=== PATIENT | female | born 1960 | race Caucasian/White ===

== ENCOUNTER 2022-04-30 10:18 | Inpatient (IN) ==
--- NOTE | 2022-04-14 15:35 | PAT Medication Instructions ---
Medication Instructions Date of Service April 14, 2022 Home Medications acetaminophen 500 mg tablet 500 mg PO BID carboxymethylcellulose sodium 1 % eye drops (Artificial Tears (carboxymethylcellulose)) 1 drp ophthalmic (eye) QID cyanocobalamin (vitamin B-12) 1,000 mcg tablet 1,000 mcg PO QAM divalproex 250 mg tablet,delayed release 250 mg PO BID divalproex 500 mg tablet,delayed release 500 mg PO BID docusate sodium 100 mg capsule 100 mg PO BID fiber 1 tab PO BID fluticasone propionate 50 mcg/actuation nasal spray,suspension 1 spray intranasal QAM gabapentin 100 mg capsule 100 mg PO BID hydroxychloroquine 200 mg tablet 200 mg PO BID lamotrigine 100 mg tablet (Lamictal) 100 mg PO QAM lamotrigine 25 mg tablet (Lamictal) 25 mg PO HS levetiracetam 1,000 mg tablet (Keppra) 1,000 mg PO TID levothyroxine 100 mcg tablet 100 mcg PO QAM lorazepam 0.5 mg tablet 0.5 mg PO BID meloxicam 7.5 mg tablet 7.5 mg PO QAM menthol 4 % topical gel (X-Treme Freeze) 1 applic topical BID PRN Pain metformin 850 mg tablet 850 mg PO BID multivitamin 1 tab PO QAM pantoprazole 40 mg tablet,delayed release 40 mg PO QAM polysaccharide iron complex 150 mg iron capsule (iFerex 150) 150 mg PO QAM primidone 50 mg tablet 100 mg PO HS psyllium seed (sugar) oral powder (Metamucil (sugar) oral powder) 1 tbsp PO QAM quetiapine 100 mg tablet (Seroquel) 100 mg PO HS rosuvastatin 5 mg tablet 5 mg PO HS sertraline 200 mg capsule 200 mg PO QAM ASK your surgeon for instructions meloxicam 7.5 mg tablet 7.5 mg PO QAM ASK your prescriber and surgeon hydroxychloroquine 200 mg tablet 200 mg PO BID STOP taking 24 hours before surgery menthol 4 % topical gel (X-Treme Freeze) 1 applic topical BID PRN Pain DO NOT take the morning of surgery cyanocobalamin (vitamin B-12) 1,000 mcg tablet 1,000 mcg PO QAM docusate sodium 100 mg capsule 100 mg PO BID fiber 1 tab PO BID metformin 850 mg tablet 850 mg PO BID multivitamin 1 tab PO QAM polysaccharide iron complex 150 mg iron capsule (iFerex 150) 150 mg PO QAM psyllium seed (sugar) oral powder (Metamucil (sugar) oral powder) 1 tbsp PO QAM Take morning of surgery With a small sip of water, OTHERWISE NOTHING TO EAT OR DRINK AFTER MIDNIGHT: acetaminophen 500 mg tablet 500 mg PO BID carboxymethylcellulose sodium 1 % eye drops (Artificial Tears (carboxymethylcellulose)) 1 drp ophthalmic (eye) QID divalproex 250 mg tablet,delayed release 250 mg PO BID divalproex 500 mg tablet,delayed release 500 mg PO BID fluticasone propionate 50 mcg/actuation nasal spray,suspension 1 spray intranasal QAM gabapentin 100 mg capsule 100 mg PO BID lamotrigine 100 mg tablet (Lamictal) 100 mg PO QAM levetiracetam 1,000 mg tablet (Keppra) 1,000 mg PO TID levothyroxine 100 mcg tablet 100 mcg PO QAM lorazepam 0.5 mg tablet 0.5 mg PO BID pantoprazole 40 mg tablet,delayed release 40 mg PO QAM sertraline 200 mg capsule 200 mg PO QAM Take evening before surgery acetaminophen 500 mg tablet 500 mg PO BID carboxymethylcellulose sodium 1 % eye drops (Artificial Tears (carboxymethylcellulose)) 1 drp ophthalmic (eye) QID divalproex 250 mg tablet,delayed release 250 mg PO BID divalproex 500 mg tablet,delayed release 500 mg PO BID docusate sodium 100 mg capsule 100 mg PO BID fiber 1 tab PO BID gabapentin 100 mg capsule 100 mg PO BID lamotrigine 25 mg tablet (Lamictal) 25 mg PO HS levetiracetam 1,000 mg tablet (Keppra) 1,000 mg PO TID lorazepam 0.5 mg tablet 0.5 mg PO BID metformin 850 mg tablet 850 mg PO BID primidone 50 mg tablet 100 mg PO HS quetiapine 100 mg tablet (Seroquel) 100 mg PO HS rosuvastatin 5 mg tablet 5 mg PO HS Other Notes If you have any questions please call us at [phone] or [phone] or [phone] or [phone]
--- NOTE | 2022-04-17 13:53 | Anesthesiology Consultation ---
Date of Service April 17, 2022 Assessment & Plan (1) Encounter for pre-operative examination: Chart Review Chart Review: Acceptable Risk for Surgery (pending preop Covid test ) and Patient seen in Pre Admission Testing - Check BSG AM DOS - Pt is NOT an acceptable Same Day Joint candidate Per PAT appt on 04/17/22, patient denies any recent travel or large group activities. Pt resides at [facility] [place]. Pt is vaccinated for Covid. Will need preop Covid testing prior to surgery due to living in facility= will await results (surgeon's office was made aware to order). Educated on importance of using Covid precautions one week prior to surgery Teaching & Discussion Pre-Anesthesia Teaching/Discussion Notes: Instructed NPO after midnight before surgery,except medications with 15 cc of water. Medication instructions provided according to the PAT guidelines. History Surgery Operation Date: 04/30/22 13:15 Proposed Procedures p Right Anatomic Total Shoulder Replacement - Tereso Roque M.D. Height/Weight Height: 5 ft 1.5 in Weight: 117.5 kg Allergies Allergy/AdvReac Type Severity Reaction Status Date / Time Penicillins Allergy Unknown Rash Verified 04/17/22 14:03 Sulfa (Sulfonamide Allergy Unknown Rash Verified 04/17/22 14:03 Antibiotics) Thiazides Allergy Unknown Rash Verified 04/17/22 14:03 Medications Home Medications Medication Instructions Recorded Confirmed Last Taken acetaminophen 500 mg tablet 500 mg PO BID 04/08/22 04/08/22 Unknown carboxymethylcellulose sodium 1 % 1 drp ophthalmic (eye) QID 04/08/22 04/08/22 Unknown eye drops (Artificial Tears (carboxymethylcellulose)) cyanocobalamin (vitamin B-12) 1,000 mcg PO QAM 04/08/22 04/08/22 Unknown 1,000 mcg tablet divalproex 250 mg tablet,delayed 250 mg PO BID 04/08/22 04/08/22 Unknown release divalproex 500 mg tablet,delayed 500 mg PO BID 04/08/22 04/08/22 Unknown release docusate sodium 100 mg capsule 100 mg PO BID 04/08/22 04/08/22 Unknown fiber 1 tab PO BID 04/08/22 04/08/22 Unknown fluticasone propionate 50 1 spray intranasal QAM 04/08/22 04/08/22 Unknown mcg/actuation nasal spray,suspension gabapentin 100 mg capsule 100 mg PO BID 04/08/22 04/08/22 Unknown hydroxychloroquine 200 mg tablet 200 mg PO BID 04/08/22 04/08/22 Unknown lamotrigine 100 mg tablet 100 mg PO QAM 04/08/22 04/08/22 Unknown (Lamictal) lamotrigine 25 mg tablet (Lamictal) 25 mg PO HS 04/08/22 04/08/22 Unknown levetiracetam 1,000 mg tablet 1,000 mg PO TID 04/08/22 04/08/22 Unknown (Keppra) levothyroxine 100 mcg tablet 100 mcg PO QAM 04/08/22 04/08/22 Unknown lorazepam 0.5 mg tablet 0.5 mg PO BID 04/08/22 04/08/22 Unknown meloxicam 7.5 mg tablet 7.5 mg PO QAM 04/08/22 04/08/22 Unknown menthol 4 % topical gel (X-Treme 1 applic topical BID PRN Pain 04/08/22 04/08/22 Unknown Freeze) metformin 850 mg tablet 850 mg PO BID 04/08/22 04/08/22 Unknown multivitamin 1 tab PO QAM 04/08/22 04/08/22 Unknown pantoprazole 40 mg tablet,delayed 40 mg PO QAM 04/08/22 04/08/22 Unknown release polysaccharide iron complex 150 mg 150 mg PO QAM 04/08/22 04/08/22 Unknown iron capsule (iFerex 150) primidone 50 mg tablet 100 mg PO HS 04/08/22 04/08/22 Unknown psyllium seed (sugar) oral powder 1 tbsp PO QAM 04/08/22 04/08/22 Unknown (Metamucil (sugar) oral powder) quetiapine 100 mg tablet (Seroquel) 100 mg PO HS 04/08/22 04/08/22 Unknown rosuvastatin 5 mg tablet 5 mg PO HS 04/08/22 04/08/22 Unknown sertraline 200 mg capsule 200 mg PO QAM 04/08/22 04/08/22 Unknown Past Medical History Medical History (Updated 04/17/22 @ 14:40 by Marguerite Estevez PA-C) Alopecia Anemia On iron supplement Stable Bipolar disorder Constipation Chronic- stable DDD (degenerative disc disease) Dental abscess On antibiotic - surgeon's office made aware 04/17/22 (will leave to surgeon's discretion) Depression Diabetes mellitus, type 2 Well controlled and stable Dry eye syndrome Epilepsy Last known seizure 2019 > grand mal, normally has petit mal seizures > Dr. Fazal Molina > [place] GERD (gastroesophageal reflux disease) Well controlled and stable History of breast cancer S/p lumpectomy- s/p XRT History of COVID-19 approx 6-7 mos ago > was not hospitalized > resolved Hx of gastritis Hx of ovarian cancer > hysterectomy; no chemo or XRT Hyperlipidemia Hypothyroidism Obesity OCD (obsessive compulsive disorder) Exercise / Class Metabolic Activity III < 4 Walking/Shop/Light housework (uses walker for ambulation - no chest pain or SOB with flat surface/short distance ambulation) Past Surgical History Surgical History Fistula anal with repair H/O ankle fusion left History of esophagogastroduodenoscopy (EGD) History of hysterectomy partial History of total knee replacement bilat Hx of colonoscopy with polypectomy Hx of eye surgery Hx of lumpectomy left Past Anesthesia History No Hx of Anesthesia Complications and No Family Hx of Anesthesia Complications History of PONV No Hx of PONV and No Hx of Motion Sickness Social History Smoking Status: Never smoker Do You Dip or Chew Tobacco: No Hx Alcohol Use: No Hx Substance Use: No substance use type: does not use Review of Systems -Chronic sinusitis - no current issues - Possible blood transfusion for anemia - Occ snoring - no hx of sleep study Patient denies chest pain, shortness of breath, dyspnea on exertion, cough, wheezing, palpitations. No hx of stroke, [place]. No hx of blood clots or blood transfusions Physical Exam Vital Signs VITALS BP 139/98 P 72 TEMP 98.0 SP02 97% RESP 16 Constitutional no acute distress ENMT Mouth: no TMJ clicking Thyromental Distance: > or= 3.5 Finger Breadths (4.0) Mallampati Class: III Broken teeth; side teeth/molars missing Neck + limited neck extension (mild ) Respiratory normal respiratory effort; no respiratory distress Auscultation: lungs clear to auscultation bilaterally; no wheezes Cardiovascular Rate/Rhythm: regular rate and regular rhythm Heart Sounds: no murmur Vessels: no carotid bruit Heart sounds diminished throughout Musculoskeletal Spine: no pain with cervical ROM Extremities: extremities normal to inspection Psychiatric Orientation: alert Lab Results Anesthesia Preop Results Results Anesthesia Widget: WBC 5.50 K/ul (4.8-10.8) 04/17/22 Hgb 12.2 g/dl (12.0-16.0) 04/17/22 Hct 37.4 % (37.0-47.0) 04/17/22 Plt 181 K/uL (130-400) 04/17/22 Na 138 mmol/L (136-145) 04/17/22 K 4.7 mmol/L (3.5-5.1) 04/17/22 Cl 104 mmol/L (98-107) 04/17/22 CO2 29 mmol/L (21-32) 04/17/22 BUN 19 mg/dl (6-23) 04/17/22 Creat 0.74 mg/dl (0.6-1.2) 04/17/22 Glucose Level 110 mg/dl (70-99(Fasting)) H 04/17/22 PT 11.0 Seconds (9.0-12.0) 04/17/22 PTT 27.8 Seconds (21.0-31.0) 04/17/22 INR 1.0 (0.9-1.1) 04/17/22 HA1c 5.9 % (4.5-5.6) H 04/17/22 Urine Color Dark Yellow 04/17/22 Urine Appearance Clear (Clear) 04/17/22 Urine pH 6.0 (4.5-7.5) 04/17/22 Urine Specific [place] 1.024 (1.000-1.030) 04/17/22 Urine Protein Negative (Negative) 04/17/22 Urine Glucose (UA) Negative (Negative) 04/17/22 Urine Ketones Trace (Negative) H 04/17/22 Urine Blood Negative (Negative) 04/17/22 Urine Nitrite Negative (Negative) 04/17/22 Urine Bilirubin Negative (Negative) 04/17/22 Urine Urobilinogen Negative (Negative) 04/17/22 Urine Leukocyte Esterase Trace (Negative) H 04/17/22 Urine WBC (Auto) 1-5 /hpf (0-5) 04/17/22 Urine RBC (Auto) 5-10 /hpf (0-4) H 04/17/22 Urine Hyaline Casts (Auto) 0 /lpf (0-5) 04/17/22 Urine Epithelial Cells (Auto) 10-20 /lpf (0-5) H 04/17/22 Urine Bacteria (Auto) Negative (Negative) 04/17/22 Blood Type O Positive 04/17/22 Antibody Screen NEGATIVE 04/17/22 Testing Electrocardiogram Date: 04/17/22 Findings: + NSR @ (73bpm ) Nonspecific T wave abnormality Prolonged QT Chest X-Ray Date: 04/17/22 Findings: + NAD and + cardiomegaly (mild) COVID-19 Risk Screen Screening Information COVID-19 Screen Date: 04/17/22 Exposure 21 Days Family/Household +COVID Last 21 Days: No Exposure 10 Days Any COVID Exposure Last 10 Days: No Symptoms Last 10 Days Experienced COVID Sx Last 10 Days: No + COVID 0-90 Days COVID + in Last 0-90 Days: No Risk Plan COVID Risk Plan: No Risk Identified Patient Education COVID Preop Screening Education Complete: Yes
--- NOTE | 2022-04-29 16:26 | History & Physical Report ---
Date of Service April 29, 2022 Assessment & Plan (1) Primary osteoarthritis, right shoulder: Plan: Her x-rays and MRI are very consistent with right shoulder primary glenohumeral joint arthritis. We discussed further conservative management with repeat glenohumeral joint steroid injections versus definitive surgical intervention with a total shoulder arthroplasty. She feels like the injections were minimally effective for her in the past, and would like to proceed with a shoulder replacement. Since her imaging is most consistent with primary glenohumeral joint arthritis, I do think that she would be a candidate for an anatomic total shoulder arthroplasty. I am concerned about the large cysts in her humeral head that look like they are emanating from the greater tuberosity footprint of the supraspinatus tendon, likely consistent with some chronic rotator cuff tendinitis. I did advise her that a reverse total shoulder arthroplasty is more definitive, and with an anatomic total shoulder she is at risk for requiring a revision to a reverse if her rotator cuff ruptures postoperatively. However, given her seizure disorder and walker dependence, I think she would be at increased risk for dislocation of her reverse total shoulder arthroplasty. I therefore think that a an anatomic total shoulder would be the best option for her. She is in agreement with this plan and would like to proceed with a right anatomic total shoulder arthroplasty. Risks, benefits, and alternatives of surgery were explained in detail. The surgical procedure, as well as postoperative recovery and rehabilitation, was also explained in detail. Risks include bleeding; infection; damage to surrounding structures such as nerves, blood vessels, and tendons that run in the area; persistent pain or stiffness; hardware failure; dislocation; brachial plexus palsy; blood clots; or need for further surgery. The patient understands all of this and wishes to proceed with surgery. Risks will be reviewed on the day of surgery and informed consent obtained. History of Present Illness Chief Complaint: Right shoulder pain Primary Care Provider: Sonu Lundberg Ms. Morales returns. Again, she is a 61-year-old [id number] female who was referred from Dr. Shah's team for further evaluation of chronic right shoulder pain. She has had pain in the shoulder for several years, but it got quite severe in the last year and she has a lot of difficulty with any motion now. She is only had 1 injection in her shoulder joint around September which gave her only about 5 to 6 weeks improvement in her pain. She was also sent to physical therapy without significant long-term improvement. She does have some weakness and difficulty with lifting her arm to the side. This pain is waking her up at night. At her last appointment we had discussed total shoulder arthroplasty, but she is unsure whether she wanted to move forward with that. She has gotten her hemoglobin A1c value drawn since then. She also made some postoperative arrangements for rehabilitation placement after potential shoulder replacement surgery. [facility] is planning to [facility] [place]. Of note, she has a seizure disorder and is on multiple antiepileptic medications. Her last seizure was in 2018. She is also diabetic; hemoglobin A1c on 02/24/22 was 6.3. She uses a walker for ambulation. This is mostly just for balance, but she feels like she would be fine if she only used her left hand on the walker. She also had a left ankle fusion in 2018, but is full weightbearing. She lives in an assisted living facility. Allergies Allergy/AdvReac Type Severity Reaction Status Date / Time Penicillins Allergy Unknown Rash Verified 04/17/22 14:03 Sulfa (Sulfonamide Allergy Unknown Rash Verified 04/17/22 14:03 Antibiotics) Thiazides Allergy Unknown Rash Verified 04/17/22 14:03 Home Medications Medication Instructions Recorded Confirmed Type acetaminophen 500 mg tablet 500 mg PO BID 04/08/22 04/08/22 History carboxymethylcellulose sodium 1 % 1 drp ophthalmic (eye) QID 04/08/22 04/08/22 History eye drops (Artificial Tears (carboxymethylcellulose)) cyanocobalamin (vitamin B-12) 1,000 mcg PO QAM 04/08/22 04/08/22 History 1,000 mcg tablet divalproex 250 mg tablet,delayed 250 mg PO BID 04/08/22 04/08/22 History release divalproex 500 mg tablet,delayed 500 mg PO BID 04/08/22 04/08/22 History release docusate sodium 100 mg capsule 100 mg PO BID 04/08/22 04/08/22 History fiber 1 tab PO BID 04/08/22 04/08/22 History fluticasone propionate 50 1 spray intranasal QAM 04/08/22 04/08/22 History mcg/actuation nasal spray,suspension gabapentin 100 mg capsule 100 mg PO BID 04/08/22 04/08/22 History hydroxychloroquine 200 mg tablet 200 mg PO BID 04/08/22 04/08/22 History lamotrigine 100 mg tablet 100 mg PO QAM 04/08/22 04/08/22 History (Lamictal) lamotrigine 25 mg tablet (Lamictal) 25 mg PO HS 04/08/22 04/08/22 History levetiracetam 1,000 mg tablet 1,000 mg PO TID 04/08/22 04/08/22 History (Keppra) levothyroxine 100 mcg tablet 100 mcg PO QAM 04/08/22 04/08/22 History lorazepam 0.5 mg tablet 0.5 mg PO BID 04/08/22 04/08/22 History meloxicam 7.5 mg tablet 7.5 mg PO QAM 04/08/22 04/08/22 History menthol 4 % topical gel (X-Treme 1 applic topical BID PRN Pain 04/08/22 04/08/22 History Freeze) metformin 850 mg tablet 850 mg PO BID 04/08/22 04/08/22 History multivitamin 1 tab PO QAM 04/08/22 04/08/22 History pantoprazole 40 mg tablet,delayed 40 mg PO QAM 04/08/22 04/08/22 History release polysaccharide iron complex 150 mg 150 mg PO QAM 04/08/22 04/08/22 History iron capsule (iFerex 150) primidone 50 mg tablet 100 mg PO HS 04/08/22 04/08/22 History psyllium seed (sugar) oral powder 1 tbsp PO QAM 04/08/22 04/08/22 History (Metamucil (sugar) oral powder) quetiapine 100 mg tablet (Seroquel) 100 mg PO HS 04/08/22 04/08/22 History rosuvastatin 5 mg tablet 5 mg PO HS 04/08/22 04/08/22 History sertraline 200 mg capsule 200 mg PO QAM 04/08/22 04/08/22 History Past Med/Surg History Medical History (Updated 04/29/22 @ 16:24 by Tereso Roque M.D.) Alopecia Anemia On iron supplement Stable Bipolar disorder Constipation Chronic- stable DDD (degenerative disc disease) Dental abscess On antibiotic - surgeon's office made aware 04/17/22 (will leave to surgeon's discretion) Depression Diabetes mellitus, type 2 Well controlled and stable Dry eye syndrome Epilepsy Last known seizure 2019 > grand mal, normally has petit mal seizures > Dr. Fazal Molina > [place] GERD (gastroesophageal reflux disease) Well controlled and stable History of breast cancer S/p lumpectomy- s/p XRT History of COVID-19 approx 6-7 mos ago > was not hospitalized > resolved Hx of gastritis Hx of ovarian cancer > hysterectomy; no chemo or XRT Hyperlipidemia Hypothyroidism Obesity OCD (obsessive compulsive disorder) Surgical History Fistula anal with repair H/O ankle fusion left History of esophagogastroduodenoscopy (EGD) History of hysterectomy partial History of total knee replacement bilat Hx of colonoscopy with polypectomy Hx of eye surgery Hx of lumpectomy left Social History Smoking Status: Never smoker Second Hand Exposure: No; Hx Alcohol Use: No Hx Substance Use: No Preferred Language: Romanian Communication Ability: Effective Stoker Erector And Servicer Required: No Beliefs That Will Affect Care: None Current Living Situation: Personal Care Facility Feels Safe at Home: Yes Assistive Devices: Cane, Glasses and Walker Physical Exam Physical Exam: Examination of the right shoulder shows moderate limitation in shoulder range of motion due to pain, with palpable crepitus during motion. Rotator cuff strength is well maintained. Results & Data ([facility]) Diagnostic Findings Previous x-rays of the right shoulder from January 27 were reviewed. They show fairly severe glenohumeral joint arthritis with complete loss of the joint space. This does look like primary glenohumeral joint arthritis with no obvious proximal migration of the humeral head. MRI of the right shoulder from February 04 was reviewed. It confirms severe glenohumeral joint arthritis. There is some posterior subluxation of the humeral head. No full-thickness rotator cuff tears are seen, but there is some mild diffuse tendinopathy of the supraspinatus tendon. There are numerous very large cysts within the humeral head that seem to be emanating from the rotator cuff insertion point of the greater tuberosity, likely associated with chronic rotator cuff tendinitis. Type II acromion. There is also a very large loose body in the anterior aspect of the joint superior and anterior to the subscapularis tendon.
[~2022-04-30 10:18] MED LIST: ACETAMINOPHEN 500 MG TAB PO SCH; BUPIVACAINE 0.5 % 5 MG/1 ML PF 10ML VIAL ONE; CeleBREX 200 MG CAP PO SCH; FAMOTIDINE 20 MG TAB PO SCH; GABAPENTIN 600 MG DOSE PO SCH; LR 15ML/HR IV SCH; METOCLOPRAMIDE HCL 10 MG TABLET PO SCH; TRANEXAMIC ACID 1,000 MG **IV Pre-op IV SCH; ceFAZolin 2000MG 2,000 MG/15 ML SYR IV SCH; dexAMETHasone 4 MG TAB PO SCH
--- NOTE | 2022-04-30 11:10 | History & Physical Bridge Note ---
Date of Service April 30, 2022 History & Physical Bridge Note I have examined the patient, reviewed the History & Physical and in the interval since the performance of the History & Physical I have noted the following changes of clinical significance: no changes noted
[2022-04-30] MEDS ORDERED: Nursing to Pharmacy Communication SCH (11:15)
[2022-04-30] MEDS ORDERED: MIDAZOLAM HCL 1 MG/ML 2ML VIAL ONE ×2 (11:43→13:44)
[2022-04-30] MEDS ORDERED: fentaNYL citrate 100 MCG/2 ML VIAL ONE ×2 (11:43→13:44)
[2022-04-30] MEDS ORDERED: ePHEDrine sulfate 50 MG/ML AMP IV PRN (12:17)
[2022-04-30] MEDS ORDERED: ONDANSETRON INJ 2 MG/ML 2 ML VIAL IV PRN ×2 (12:17→17:52)
[2022-04-30] MEDS ORDERED: ATROPINE SULFATE 0.1 MG/ML 10ML SYR IV PRN (12:17)
[2022-04-30] MEDS ORDERED: PROMETHAZINE HCL 6.25 MG in SODIUM CHLORIDE 0.9% 50 ML IV PRN (12:17)
[2022-04-30] MEDS ORDERED: LIDOCAINE 2% MPF LOCAL 5 ML VIAL INFIL ONE (14:47)
[2022-04-30] MEDS ORDERED: ePHEDrine sulfate 50 MG/ML AMP ONE (14:47)
[2022-04-30] MEDS ORDERED: DEXAMETHASONE SOD INJ 4 MG/ML VIAL ONE ×2 (14:47→18:39)
[2022-04-30] MEDS ORDERED: ROCURONIUM BROMIDE 10 MG/ML 5 ML VIAL IV ONE (14:47)
[2022-04-30] MEDS ORDERED: PROPOFOL IV EMULSION 10 MG/ML 20 ML VIAL IV ONE (14:47)
--- NOTE | 2022-04-30 16:19 | Operative Report ---
Post Operative Report Pre & Post Diagnosis Operation Date: 04/30/22 12:35 Pre-Op Diagnosis: Right shoulder primary glenohumeral joint arthritis Post-Op Diagnosis: Right shoulder primary glenohumeral joint arthritis I identified the patient and participated in the time-out.: Yes Procedure Operation Date: 04/30/22 12:35 Actual Procedures Right anatomic total shoulder arthroplasty (07710) Open biceps tenodesis (46957) - Tereso Roque M.D. Surgeon Tereso Roque MD [employer] Manager Mitch Cates PA-C Estimated Blood Loss 100 Findings Consistent with Post-Op Diagnosis Specimens None Drains None Anesthesia Type General Regional Complications none Disposition Disposition: Recovery Room Indications Ms. Morales is a 61-year-old female with chronic right shoulder pain. Histo ry, clinical exam, and imaging were consistent with the above diagnosis. Risks, benefits, and alternatives of surgery were explained in detail. The patient understood all this and wished to proceed. Description of Procedure Components Implanted: Tornier Anatomic Total Shoulder implants Perform Pegged Cortiloc polyethylene glenoid: Small Ascend Flex humeral stem: 3B Standard length (74mm) Humeral head: 46 x 17mm, high offset Patient was identified in the preoperative holding area. Operative extremity was marked. Regional blockade was given by the Anesthesia Staff. Patient was then brought back to the operating room, and general anesthesia was induced without complication. Appropriate weight-based dose of Ancef was infused intravenously for antibiotic prophylaxis. The patient was then placed in the beachchair position. Right arm was then prepped and draped in a standard sterile fashion using Chlorhexidine prep. A standard deltopectoral incision was made through the skin and subcutaneous tissue. The cephalic vein was identified and retracted medially. Small branches to the deltoid were coagulated as necessary. The clavipectoral fascia was then incised and the subdeltoid space was opened. The rotator cuff was found to be intact, and I therefore decided to perform an anatomic total shoulder arthroplasty as planned preoperatively. The biceps tendon was identified within the bicipital groove and tenodesed at the superior border of the pectoralis tendon with #2 FiberWire suture. The biceps tendon was then divided proximal to the tenodesis site and the rotator interval was opened. The proximal portion of the biceps tendon was excised. Lesser tuberosity osteotomy was then performed to detach the subscapularis off of the proximal humerus; this was tagged with a #0 Vicryl suture. The glenohumeral joint was then dislocated, and large osteophytes were debrided with a ronguer. The humeral head cut was then made in the appropriate inclination and version. The intramedullary canal of the humerus was then opened with a canal finder and lateralizing reamer. Proximal humerus metaphyseal bone was noted to be extremely soft, consistent with likely osteoporosis. The humeral canal was then sequentially broached to the appropriate size. A protective cap was then placed on top of the humeral trial. I then turned my attention to the glenoid. The proximal stump of the biceps tendon was excised, along with the labrum circumferentially around the glenoid. The Blueprint drill guide was then positioned on the glenoid, and the guidepin was then inserted. The reamer was then inserted over the guidepin and an reamed to an appropriate depth. The central peg drill hole was made over the guidewire. The drill guide for the peripheral glenoid pegs was then placed onto the glenoid surface, and 3 peripheral drill holes made within the glenoid in an appropriate orientation. Morselized cancellous bone was packed into the fins of the Cortiloc central peg, and bone cement was placed into the 3 peripheral glenoid peg holes. The glenoid component was then implanted into place, and excess cement removed. A trial humeral head was inserted, and a trial reduction was carried out. Once I achieved acceptable joint stability and range of motion with the trial implants, the trials were removed and the final humeral implants impacted into position. Prior to final impaction of the humeral component, I inserted two #2 FiberWire sutures for subsequent repair of the lesser tuberosity osteotomy. I then took the shoulder through full range of motion to ensure good stability and acceptable motion. Wound was then copiously irrigated with sterile saline. The lesser tuberosity and its attached subscapularis were then repaired to the lesser tuberosity with the previously placed #2 FiberWire sutures. The rotator interval was then closed with the shoulder held in external rotation with #2 FiberWire suture. Deep fascia was closed with 0 V-lock suture. Subcutaneous tissue was closed with 2-0 V-lock, and skin was closed with 3-0 V-lock. Skin was then sealed with Dermabond. Sterile dressings were then applied with a waterproof silver- impregnated dressing, and the arm was placed into a sling. The patient was awakened from anesthesia and taken to the Post Anesthesia Care Unit in stable condition. There were no immediate complications from the procedure. I was present and scrubbed for the entire procedure, with the exception of final skin closure and dressing application. Due to the complex nature of the procedure, the entire surgery was performed with the operational assistance of Mitch Cates PA-C. The emergency medicine physician assistant, under direct supervision, was involved in the performance of all aspects of the surgical procedure including hemostasis, tissue incision and retraction, instrument management, patient positioning, and wound closure. I attest to the content of the Intraoperative Record and any orders documented therein. Any exceptions are noted below.
[2022-04-30] MEDS: fentaNYL citrate 100 MCG/2 ML VIAL IV PRN ×2 (16:52→16:57)
--- NOTE | 2022-04-30 17:01 | XRay Report ---
XR shoulder RT min 2V routine CLINICAL HISTORY: Post shoulder surgery TECHNIQUE: 3 views of the right shoulder were obtained. Comparison: None available at the time of this dictation. FINDINGS: Patient is status post shoulder arthroplasty with expected postsurgical changes including soft tissue swelling and subcutaneous emphysema. No periarticular lucency or hardware fracture is seen. IMPRESSION: Expected postoperative appearance status post placement of shoulder arthroplasty. ACT 112: Negative or not required by law. Electronically signed by: Sachin Monet M.D. 04/30/2022 5:00 PM
--- NOTE | 2022-04-30 17:08 | Anesthesiology Progress Note ---
Date of Service April 30, 2022 Anesthesia Post Procedure Vital Signs Vital Signs: Temp Pulse Pulse Resp BP Pulse Ox O2 Del Method 04/30/22 17:00 78 14 128/64 99 Nasal Cannula 04/30/22 16:50 74 20 140/85 100 Nasal Cannula 04/30/22 16:40 80 12 147/76 H 95 Room Air 04/30/22 16:30 36.1 C L 79 14 144/87 H 100 Oxymask 04/30/22 10:48 Room Air 04/30/22 10:48 36.9 C 68 20 151/79 H 100 Room Air O2 Flow Rate 04/30/22 17:00 2 04/30/22 16:50 2 04/30/22 16:40 04/30/22 16:30 5 04/30/22 10:48 04/30/22 10:48 Pain Intensity Right Shoulder: Pain Intensity: 4 Transfer of Care Handoff Completed per policy Notes Mental Status: alert / awake / arousable Patient Amnestic to Procedure: Yes Nausea / Vomiting: adequately controlled Pain: adequately controlled Airway Patency, RR, SpO2: stable & adequate BP & HR: stable & adequate Hydration State: stable & adequate Anesthetic Complications: no major complications apparent
[2022-04-30] MEDS ORDERED: MAGNESIUM HYDROXIDE SUSP 30 ML UDC PO PRN (17:52)
[2022-04-30] MEDS ORDERED: NALOXONE HCL 0.4 MG/1 ML VIAL/CARP IV PRN (17:52)
[2022-04-30] MEDS ORDERED: oxyCODONE HCL IR 5 MG TAB (IMMEDIATE RELEASE) PO PRN (17:52)
[2022-04-30] MEDS ORDERED: bisacodyL 10 MG SUPP PR PRN (17:52)
[2022-04-30] MEDS: SODIUM CHLORIDE 0.9% 1000ML 1,000 ML IV SCH (18:32)
[2022-04-30] MEDS ORDERED: TROLAMINE SALICYLATE 10% CRM 255 APPLN/85 GM TUBE EXT PRN (18:35)
[2022-04-30] MEDS: ALLERGY Noted to ORDERED Medication SCH (18:36)
[2022-04-30] MEDS ORDERED: ONDANSETRON INJ 2 MG/ML 2 ML VIAL ONE (18:39)
[2022-04-30] MEDS: ACETAMINOPHEN 500 MG TAB PO SCH ×2 (20:05→23:54)
[2022-04-30] MEDS: IBUPROFEN 600 MG TAB PO SCH ×2 (20:05→23:54)
[2022-04-30] MEDS: DIVALPROEX DELAY RELEASE 250 MG TABEC PO SCH (20:12)
[2022-04-30] MEDS: DIVALPROEX DELAY RELEASE 500 MG TAB PO SCH (20:12)
[2022-04-30] MEDS: ROSUVASTATIN CALCIUM 5 MG TAB PO SCH (20:12)
[2022-04-30] MEDS: HYDROXYCHLOROQUINE SULFATE 200 MG TAB PO SCH (20:12)
[2022-04-30] MEDS: GABAPENTIN 100 MG CAP PO SCH (20:12)
[2022-04-30] MEDS: LORazepam 0.5 MG TAB PO SCH (20:12)
[2022-04-30] MEDS: levETIRAcetam 500 MG TAB PO SCH (20:12)
[2022-04-30] MEDS: QUEtiapine FUMARATE 100 MG TABLET PO SCH (20:12)
[2022-04-30] MEDS: lamoTRIgine 25 MG TAB PO SCH (20:12)
[2022-04-30] MEDS: DOCUSATE SODIUM 100 MG CAP PO SCH (20:12)
[2022-04-30] MEDS: PRIMIDONE 50 MG TAB PO SCH (20:13)
[2022-04-30] MEDS: ARTIFICIAL TEARS OP SCH (20:22)
[2022-04-30] MEDS ORDERED: FIBER PO SCH (21:00)
[2022-04-30] MEDS: ceFAZolin 2000MG 2,000 MG/15 ML SYR IV SCH (21:58)
[2022-05-01] MEDS: SODIUM CHLORIDE 0.9% 1000ML 1,000 ML IV SCH (03:40)
[2022-05-01] MEDS: ceFAZolin 2000MG 2,000 MG/15 ML SYR IV SCH (06:03)
[2022-05-01] MEDS: IBUPROFEN 600 MG TAB PO SCH ×4 (06:09→23:19)
[2022-05-01] MEDS: LEVOTHYROXINE SODIUM 100 MCG TABLET PO SCH (06:09)
[2022-05-01] MEDS: ACETAMINOPHEN 500 MG TAB PO SCH ×4 (06:10→23:19)
[2022-05-01 06:26] LABS: Basophils # (auto) 0.03 K/uL (0-0.2); Basophils % (auto) 0.4 %; Eosinophils # (auto) 0.03 K/uL (0-0.50); Eosinophils % (auto) 0.4 %; Hematocrit (blood only) 34.8 % (37.0-47.0); Hemoglobin 11.5 g/dl (12.0-16.0); Immature Granulocytes # (auto) 0.02 K/uL (0.01-0.20); Immature Granulocytes % (auto) 0.3 %; Lymphocytes # (auto) 2.36 K/uL (1.2-3.4); Lymphocytes % (auto) 30.5 %; Mean Corpuscular Hemoglobin 29.6 pg (25.0-34.0); Mean Corpuscular Volume 89.5 fL (80.0-100.0); Mean Platelet Volume 11.6 fL (9.4-12.4); Monocytes % (auto) 10.3 %; Neutrophils % (auto) 58.1 %; Platelet Count 184 K/uL (130-400); RDW Coefficient of Variation 14.6 % (11.5-14.5); RDW Standard Deviation 47.9 fL (36.4-46.3); Red Blood Count 3.89 M/uL (4.20-5.40); White Blood Count 7.74 K/ul (4.8-10.8)
[2022-05-01 07:01] LABS: Calcium 9.1 mg/dl (8.5-10.1); Creatinine Clr Calc Pharmacy 84.7 ml/min; Est GFR (African American) 90.1 ml/min; Est GFR (Non-African American) 77.8 ml/min
[2022-05-01] MEDS: metFORMIN HCL 850 MG TAB PO SCH ×2 (07:06→17:36)
[2022-05-01] MEDS: ALLERGY Noted to ORDERED Medication SCH ×2 (07:08→07:09)
[2022-05-01] MEDS: ARTIFICIAL TEARS OP SCH ×4 (07:56→20:59)
[2022-05-01] MEDS: CYANOCOBALAMIN (B-12) 500 MCG TABLET PO SCH (07:57)
[2022-05-01] MEDS: DIVALPROEX DELAY RELEASE 250 MG TABEC PO SCH ×2 (07:57→21:07)
[2022-05-01] MEDS: GABAPENTIN 100 MG CAP PO SCH ×2 (07:57→21:02)
[2022-05-01] MEDS: IRON POLYSACCHARIDE COMPLEX 150 MG CAPSULE PO SCH (07:57)
[2022-05-01] MEDS: levETIRAcetam 500 MG TAB PO SCH ×3 (07:57→21:03)
[2022-05-01] MEDS: ASPIRIN 325 MG ECTAB PO SCH (07:58)
[2022-05-01] MEDS: SERTRALINE HCL 100 MG TABLET PO SCH (07:58)
[2022-05-01] MEDS: DOCUSATE SODIUM 100 MG CAP PO SCH ×2 (07:58→21:04)
[2022-05-01] MEDS: FLUTICASONE PROPIONATE NA SPR 16 GM BTL SCH (07:59)
[2022-05-01] MEDS: lamoTRIgine 100 MG TAB PO SCH (07:59)
[2022-05-01] MEDS: PANTOprazole 40 MG TAB PO SCH (07:59)
[2022-05-01] MEDS: DIVALPROEX DELAY RELEASE 500 MG TAB PO SCH ×2 (07:59→21:06)
[2022-05-01] MEDS: HYDROXYCHLOROQUINE SULFATE 200 MG TAB PO SCH ×2 (07:59→21:05)
[2022-05-01] MEDS: PSYLLIUM or GUAR GUM FIBER POWDER PACKET PO SCH (08:00)
[2022-05-01] MEDS: LORazepam 0.5 MG TAB PO SCH ×2 (08:04→21:09)
[2022-05-01] MEDS ORDERED: NON-FORMULARY MEDICATION (Multivitamin Tablet) PO SCH (09:00)
[2022-05-01] MEDS ORDERED: SODIUM CHLORIDE 0.9% 1000ML 1,000 ML IV ONE (09:31)
--- NOTE | 2022-05-01 09:40 | Orthopedic Progress Note ---
Date of Service May 01, 2022 Assessment & Plan (1) Primary osteoarthritis, right shoulder: Plan: POD 1 Right TSA PT/OT. NWB RUE. DVT prophylaxis - ASA 325mg daily, SCD's Pain management as written. DC planning - SNF vs Rehab; CM aware and will speak with pt. Admission and Anticipated Discharge Date Admission Date: April 30, 2022 Subjective POD 1 Pt sitting up in bed starting her PT/OT sessions. Pt feels well. Pain controlled. She states she continue to have some numbness/tingling in the hand and fingers from the nerve block. No other complaints. She is hoping to go to a rehab facility upon dc. Physical Exam Physical Exam: Silverlon intact. No erythema. Sling in place. Noted decreased sensation over the dorsum of hand and fingers. Good ROM of fingers/wrist with good strenghts. Results & Data ([facility]) Vital Signs (Past 12 Hours) Vital Signs Temp Pulse Pulse Resp BP Pulse Ox O2 Del Method 05/01/22 07:53 36.6 C 80 17 110/68 95 Room Air 05/01/22 03:00 36.7 C 74 18 98/59 L 96 Room Air 04/30/22 23:37 37.1 C 81 20 121/67 96 Room Air Laboratory Results Laboratory Results WBC 7.74 K/ul (4.8-10.8) 05/01/22 05:36 RBC 3.89 M/uL (4.20-5.40) L 05/01/22 05:36 Hgb 11.5 g/dl (12.0-16.0) L 05/01/22 05:36 Hct 34.8 % (37.0-47.0) L 05/01/22 05:36 MCV 89.5 fL (80.0-100.0) 05/01/22 05:36 MCH 29.6 pg (25.0-34.0) 05/01/22 05:36 MCHC 33.0 g/dL (32.0-36.0) 05/01/22 05:36 RDW Std Deviation 47.9 fL (36.4-46.3) H 05/01/22 05:36 RDW Coeff of Go 14.6 % (11.5-14.5) H 05/01/22 05:36 Plt Count 184 K/uL (130-400) 05/01/22 05:36 MPV 11.6 fL (9.4-12.4) 05/01/22 05:36 Immature Gran % (Auto) 0.3 % 05/01/22 05:36 Neut % (Auto) 58.1 % 05/01/22 05:36 Lymph % (Auto) 30.5 % 05/01/22 05:36 [place] % (Auto) 10.3 % 05/01/22 05:36 Eos % (Auto) 0.4 % 05/01/22 05:36 Baso % (Auto) 0.4 % 05/01/22 05:36 Neut # (Auto) 4.50 K/uL (1.40-6.50) 05/01/22 05:36 Lymph # (Auto) 2.36 K/uL (1.2-3.4) 05/01/22 05:36 [place] # (Auto) 0.80 K/uL (0.11-0.59) H 05/01/22 05:36 Eos # (Auto) 0.03 K/uL (0-0.50) 05/01/22 05:36 Baso # (Auto) 0.03 K/uL (0-0.2) 05/01/22 05:36 Immature Gran # (Auto) 0.02 K/uL (0.01-0.20) 05/01/22 05:36 Sodium 140 mmol/L (136-145) 05/01/22 05:36 Potassium 4.0 mmol/L (3.5-5.1) 05/01/22 05:36 Chloride 105 mmol/L (98-107) 05/01/22 05:36 Carbon Dioxide 30 mmol/L (21-32) 05/01/22 05:36 Anion Gap 5 (3-11) 05/01/22 05:36 BUN 18 mg/dl (6-23) 05/01/22 05:36 Creatinine 0.82 mg/dl (0.6-1.2) 05/01/22 05:36 Est Cr Clr Drug Dosing 84.7 ml/min 05/01/22 05:36 Est GFR ( Amer) 90.1 ml/min 05/01/22 05:36 Est GFR (Non-Af Amer) 77.8 ml/min 05/01/22 05:36 BUN/Creatinine Ratio 22.0 (10-20) H 05/01/22 05:36 Glucose 104 mg/dl (70-99(Fasting)) H 05/01/22 05:36 POC Glucose 136 mg/dl (70-99) H 04/30/22 16:29 Calcium 9.1 mg/dl (8.5-10.1) 05/01/22 05:36 Nasal Screen MRSA (PCR) Negative (Negative) 05/01/22 08:10 SARS-CoV-2, RNA, NAAT NEGATIVE (NEGATIVE) 04/30/22 Unknown Impressions Shoulder X-Ray 04/30/22 16:33 XR shoulder RT min 2V routine CLINICAL HISTORY: Post shoulder surgery TECHNIQUE: 3 views of the right shoulder were obtained. Comparison: None available at the time of this dictation. FINDINGS: Patient is status post shoulder arthroplasty with expected postsurgical changes including soft tissue swelling and subcutaneous emphysema. No periarticular maikel cency or hardware fracture is seen. IMPRESSION: Expected postoperative appearance status post placement of shoulder arthroplasty. ACT 112: Negative or not required by law. Electronically signed by: Sachin Monet M.D. 04/30/2022 5:00 PM
[2022-05-01] MEDS: ROSUVASTATIN CALCIUM 5 MG TAB PO SCH (21:02)
[2022-05-01] MEDS: lamoTRIgine 25 MG TAB PO SCH (21:03)
[2022-05-01] MEDS: QUEtiapine FUMARATE 100 MG TABLET PO SCH (21:05)
[2022-05-01] MEDS: PRIMIDONE 50 MG TAB PO SCH (21:06)
[2022-05-02] MEDS: ACETAMINOPHEN 500 MG TAB PO SCH ×5 (05:20→23:31)
[2022-05-02] MEDS: IBUPROFEN 600 MG TAB PO SCH ×5 (05:21→23:31)
[2022-05-02] MEDS: LEVOTHYROXINE SODIUM 100 MCG TABLET PO SCH (05:42)
--- NOTE | 2022-05-02 06:37 | Orthopedic Progress Note ---
Date of Service May 02, 2022 Assessment & Plan (1) Primary osteoarthritis, right shoulder: Plan: POD 2 Right TSA PT/OT. NWB RUE. DVT prophylaxis - ASA 325mg daily, SCD's Pain management as written. DC planning - SNF vs Rehab; CM aware and will speak with pt. Admission and Anticipated Discharge Date Admission Date: April 30, 2022 Supervising Physician Co-Signing Physician Notes Patient seen and examined. Agree with ERIC Perez's note as above. She is currently sitting in bed and resting comfortably with minimal pain in her right shoulder. She states that her nerve block just started to wear off this morning. She still has a little bit of numbness in her fingertips, but it is progressively improving. Motor and sensory function is intact in the median, ulnar, and radial nerve distributions, although ulnar motor still seems a little bit weak. Right shoulder dressings clean, dry, intact. Postoperative x-rays look good. She has been out of bed with therapy, and ambulating with some assistance. Reviewed activity restrictions for her right shoulder. Patient is ready for discharge, but will need rehab stay based on preoperative living arrangements and current needs. Patient had originally wanted to go to [facility] upon discharge, but she recently had an insurance change and they will not take her insurance. Authorization pending for [facility]. Plan for discharge as soon as transfer arrangements are made. Subjective POD 2 Pt sitting up in bed, has no complaints. recently received pain meds and states this are adequately controlling her pain at this time. Review of Systems Constitutional: no fever and no chills Respiratory: no cough and no dyspnea Cardiovascular: no chest pain, no dyspnea and no orthopnea Gastrointestinal: no abdominal pain, no nausea and no vomiting Physical Exam Physical Exam: Silverlon intact. No erythema. Sling in place. sensation improved since yesterday per patient. Good ROM of fingers/wrist with good strengh Results & Data ([facility]) Vital Signs (Past 12 Hours) Vital Signs Temp Pulse Resp BP Pulse Ox O2 Del Method 05/01/22 21:17 Room Air 05/01/22 20:38 36.6 C 76 16 106/66 95 Room Air
[2022-05-02] MEDS: GABAPENTIN 100 MG CAP PO SCH ×2 (08:20→20:23)
[2022-05-02] MEDS: DIVALPROEX DELAY RELEASE 250 MG TABEC PO SCH ×2 (08:20→20:20)
[2022-05-02] MEDS: levETIRAcetam 500 MG TAB PO SCH ×3 (08:20→20:22)
[2022-05-02] MEDS: HYDROXYCHLOROQUINE SULFATE 200 MG TAB PO SCH ×2 (08:20→20:20)
[2022-05-02] MEDS: SERTRALINE HCL 100 MG TABLET PO SCH (08:20)
[2022-05-02] MEDS: lamoTRIgine 100 MG TAB PO SCH (08:21)
[2022-05-02] MEDS: IRON POLYSACCHARIDE COMPLEX 150 MG CAPSULE PO SCH (08:21)
[2022-05-02] MEDS: CYANOCOBALAMIN (B-12) 500 MCG TABLET PO SCH (08:21)
[2022-05-02] MEDS: metFORMIN HCL 850 MG TAB PO SCH ×2 (08:21→17:44)
[2022-05-02] MEDS: DIVALPROEX DELAY RELEASE 500 MG TAB PO SCH ×2 (08:21→20:21)
[2022-05-02] MEDS: ASPIRIN 325 MG ECTAB PO SCH (08:21)
[2022-05-02] MEDS: DOCUSATE SODIUM 100 MG CAP PO SCH ×2 (08:21→20:23)
[2022-05-02] MEDS: PSYLLIUM or GUAR GUM FIBER POWDER PACKET PO SCH (08:22)
[2022-05-02] MEDS: FLUTICASONE PROPIONATE NA SPR 16 GM BTL SCH (08:22)
[2022-05-02] MEDS: ARTIFICIAL TEARS OP SCH ×4 (08:22→20:19)
[2022-05-02] MEDS: PANTOprazole 40 MG TAB PO SCH (08:22)
[2022-05-02] MEDS: LORazepam 0.5 MG TAB PO SCH ×2 (08:22→20:19)
[2022-05-02] MEDS: QUEtiapine FUMARATE 100 MG TABLET PO SCH (20:20)
[2022-05-02] MEDS: ROSUVASTATIN CALCIUM 5 MG TAB PO SCH (20:21)
[2022-05-02] MEDS: PRIMIDONE 50 MG TAB PO SCH (20:21)
[2022-05-02] MEDS: lamoTRIgine 25 MG TAB PO SCH (20:22)
--- NOTE | 2022-05-03 05:37 | Orthopedic Progress Note ---
Date of Service May 03, 2022 Assessment & Plan (1) Primary osteoarthritis, right shoulder: Plan: POD 3 Right TSA PT/OT. [facility] [place]. DVT prophylaxis - ASA 325mg daily, SCD's Pain management as written. DC planning - SNF vs Rehab; CM aware and will speak with pt. likely not able to accept patient until Wednesday morning. Admission and Anticipated Discharge Date Admission Date: April 30, 2022 Supervising Physician Co-Signing Physician Notes Patient seen and examined. Agree with ERIC Perez's note as above. She is cur rently sitting in bed and resting comfortably with minimal pain in her right shoulder. Motor and sensory function in her right hand continues to improve. Right shoulder dressings clean, dry, intact. Postoperative x-rays look good. She has been out of bed with therapy, and ambulating with some assistance. Reviewed activity restrictions for her right shoulder. Patient is ready for discharge, but will need rehab stay based on preoperative living arrangements and current needs. Patient had originally wanted to go to [facility] upon discharge, but she recently had an insurance change and they will not take her insurance. Authorization pending for [facility]. Per case management's note on 05/01, they do have beds available. No update from case management since then. Plan for discharge as soon as transfer arrangements are made. Subjective POD 3 Pt sitting up in bed, has no complaints. denies CP/SOB, fever or chills. pain well controlled. Review of Systems Constitutional: no fever and no chills Respiratory: no cough and no dyspnea Cardiovascular: no chest pain, no dyspnea and no orthopnea Gastrointestinal: no abdominal pain, no nausea and no vomiting Physical Exam Physical Exam: Vital Signs Temp 37.2 C 05/02/22 21:34 Pulse 87 05/02/22 21:34 Resp 16 05/02/22 21:34 BP 111/71 05/02/22 21:34 Pulse Ox 93 05/02/22 21:34 O2 Del Method Room Air 05/02/22 21:34 O2 Flow Rate 2 04/30/22 18:00 Intake & Output 05/02/22 05/02/22 05/03/22 06:59 18:59 06:59 Intake Total 100 / 835 560 / 560 Balance 100 / 835 560 / 560 Intake: Oral 100 / 835 560 / 560 Other: # Unmeasured Voi ds 1 1 1 Musculoskeletal: right shoulder: Silverlon intact. No erythema. Sling in place. sensation improved since yesterday per patient. Good ROM of fingers/wrist with good strength. Results & Data ([facility]) Vital Signs (Past 12 Hours) Vital Signs Temp Pulse Resp BP Pulse Ox O2 Del Method 05/02/22 21:34 37.2 C 87 16 111/71 93 Room Air 05/02/22 20:04 Room Air
[2022-05-03] MEDS: IBUPROFEN 600 MG TAB PO SCH ×4 (05:55→23:17)
[2022-05-03] MEDS: LEVOTHYROXINE SODIUM 100 MCG TABLET PO SCH (05:55)
[2022-05-03] MEDS: ACETAMINOPHEN 500 MG TAB PO SCH ×4 (05:56→23:16)
[2022-05-03] MEDS: HYDROXYCHLOROQUINE SULFATE 200 MG TAB PO SCH ×2 (08:20→20:51)
[2022-05-03] MEDS: SERTRALINE HCL 100 MG TABLET PO SCH (08:21)
[2022-05-03] MEDS: ASPIRIN 325 MG ECTAB PO SCH (08:21)
[2022-05-03] MEDS: LORazepam 0.5 MG TAB PO SCH ×2 (08:21→20:48)
[2022-05-03] MEDS: IRON POLYSACCHARIDE COMPLEX 150 MG CAPSULE PO SCH (08:21)
[2022-05-03] MEDS: GABAPENTIN 100 MG CAP PO SCH ×2 (08:21→20:49)
[2022-05-03] MEDS: metFORMIN HCL 850 MG TAB PO SCH ×2 (08:21→17:29)
[2022-05-03] MEDS: DIVALPROEX DELAY RELEASE 250 MG TABEC PO SCH ×2 (08:22→20:49)
[2022-05-03] MEDS: DIVALPROEX DELAY RELEASE 500 MG TAB PO SCH ×2 (08:22→20:50)
[2022-05-03] MEDS: PANTOprazole 40 MG TAB PO SCH (08:22)
[2022-05-03] MEDS: CYANOCOBALAMIN (B-12) 500 MCG TABLET PO SCH (08:22)
[2022-05-03] MEDS: DOCUSATE SODIUM 100 MG CAP PO SCH ×2 (08:22→20:49)
[2022-05-03] MEDS: levETIRAcetam 500 MG TAB PO SCH ×3 (08:22→20:48)
[2022-05-03] MEDS: PSYLLIUM or GUAR GUM FIBER POWDER PACKET PO SCH (08:23)
[2022-05-03] MEDS: lamoTRIgine 100 MG TAB PO SCH (08:23)
[2022-05-03] MEDS: FLUTICASONE PROPIONATE NA SPR 16 GM BTL SCH (08:23)
[2022-05-03] MEDS: ARTIFICIAL TEARS OP SCH ×4 (08:23→20:44)
[2022-05-03] MEDS: lamoTRIgine 25 MG TAB PO SCH (20:49)
[2022-05-03] MEDS: PRIMIDONE 50 MG TAB PO SCH (20:50)
[2022-05-03] MEDS: ROSUVASTATIN CALCIUM 5 MG TAB PO SCH (20:51)
[2022-05-03] MEDS: QUEtiapine FUMARATE 100 MG TABLET PO SCH (20:51)
[2022-05-04] MEDS: ACETAMINOPHEN 500 MG TAB PO SCH ×3 (06:20→16:54)
[2022-05-04] MEDS: LEVOTHYROXINE SODIUM 100 MCG TABLET PO SCH (06:20)
[2022-05-04] MEDS: IBUPROFEN 600 MG TAB PO SCH ×3 (06:21→16:54)
[2022-05-04] MEDS: PANTOprazole 40 MG TAB PO SCH (08:27)
[2022-05-04] MEDS: lamoTRIgine 100 MG TAB PO SCH (08:27)
[2022-05-04] MEDS: metFORMIN HCL 850 MG TAB PO SCH ×2 (08:27→16:54)
[2022-05-04] MEDS: SERTRALINE HCL 100 MG TABLET PO SCH (08:27)
[2022-05-04] MEDS: levETIRAcetam 500 MG TAB PO SCH ×2 (08:27→12:25)
[2022-05-04] MEDS: LORazepam 0.5 MG TAB PO SCH (08:28)
[2022-05-04] MEDS: CYANOCOBALAMIN (B-12) 500 MCG TABLET PO SCH (08:28)
[2022-05-04] MEDS: ASPIRIN 325 MG ECTAB PO SCH (08:28)
[2022-05-04] MEDS: DIVALPROEX DELAY RELEASE 250 MG TABEC PO SCH (08:28)
[2022-05-04] MEDS: DOCUSATE SODIUM 100 MG CAP PO SCH (08:28)
[2022-05-04] MEDS: IRON POLYSACCHARIDE COMPLEX 150 MG CAPSULE PO SCH (08:28)
[2022-05-04] MEDS: DIVALPROEX DELAY RELEASE 500 MG TAB PO SCH (08:29)
[2022-05-04] MEDS: GABAPENTIN 100 MG CAP PO SCH (08:29)
[2022-05-04] MEDS: PSYLLIUM or GUAR GUM FIBER POWDER PACKET PO SCH (08:29)
[2022-05-04] MEDS: FLUTICASONE PROPIONATE NA SPR 16 GM BTL SCH (08:29)
[2022-05-04] MEDS: HYDROXYCHLOROQUINE SULFATE 200 MG TAB PO SCH (08:29)
[2022-05-04] MEDS: ARTIFICIAL TEARS OP SCH ×3 (08:29→16:54)
--- NOTE | 2022-05-04 08:44 | Orthopedic Progress Note ---
Date of Service May 04, 2022 Assessment & Plan (1) Primary osteoarthritis, right shoulder: Plan: POD#4 from Right TSA -PT/OT and remain NWB to RUE. -DVT pppx- ASA 325mg daily and SCD's -Pain management as written. -DC planning - SNF vs Rehab pending. CM aware and will speak with pt this morning. If pt accepted she is stable from an orthopedic standpoint to be discharged today. Admission and Anticipated Discharge Date Admission Date: April 30, 2022 Subjective Pt is POD #4 Pt sitting up in bed, eating breakfast this morning and has no complaints. Pain currently well controlled on current regime. Denies CP/SOB, fever or chills. Review of Systems Constitutional: no fever, no chills, no body aches and no weakness Respiratory: no cough, no dyspnea and no problem reported Cardiovascular: no chest pain, no chest pain at rest, no palpitations, no lightheadedness, no calf pain and no problem reported Gastrointestinal: no abdominal pain, no heartburn, no nausea and no vomiting Physical Exam Physical Exam: Right shoulder with Silverlon dressing in place. Site is c/d/i. No erythema or warmth. Sling in place, able to wiggle fingers without issue, good ROM of right wrist, NVI, and sensation continues to improve. Results & Data ([facility]) Vital Signs (Past 12 Hours) Vital Signs Temp Pulse Pulse Resp BP Pulse Ox O2 Del Method 05/04/22 08:11 37 C 71 18 123/64 96 Room Air 05/03/22 20:48 36.5 C 74 18 114/72 97 Room Air Laboratory Results Laboratory Results WBC 7.74 K/ul (4.8-10.8) 05/01/22 05:36 RBC 3.89 M/uL (4.20-5.40) L 05/01/22 05:36 Hgb 11.5 g/dl (12.0-16.0) L 05/01/22 05:36 Hct 34.8 % (37.0-47.0) L 05/01/22 05:36 MCV 89.5 fL (80.0-100.0) 05/01/22 05:36 MCH 29.6 pg (25.0-34.0) 05/01/22 05:36 MCHC 33.0 g/dL (32.0-36.0) 05/01/22 05:36 RDW Std Deviation 47.9 fL (36.4-46.3) H 05/01/22 05:36 RDW Coeff of Go 14.6 % (11.5-14.5) H 05/01/22 05:36 Plt Count 184 K/uL (130-400) 05/01/22 05:36 MPV 11.6 fL (9.4-12.4) 05/01/22 05:36 Immature Gran % (Auto) 0.3 % 05/01/22 05:36 Neut % (Auto) 58.1 % 05/01/22 05:36 Lymph % (Auto) 30.5 % 05/01/22 05:36 [place] % (Auto) 10.3 % 05/01/22 05:36 Eos % (Auto) 0.4 % 05/01/22 05:36 Baso % (Auto) 0.4 % 05/01/22 05:36 Neut # (Auto) 4.50 K/uL (1.40-6.50) 05/01/22 05:36 Lymph # (Auto) 2.36 K/uL (1.2-3.4) 05/01/22 05:36 [place] # (Auto) 0.80 K/uL (0.11-0.59) H 05/01/22 05:36 Eos # (Auto) 0.03 K/uL (0-0.50) 05/01/22 05:36 Baso # (Auto) 0.03 K/uL (0-0.2) 05/01/22 05:36 Immature Gran # (Auto) 0.02 K/uL (0.01-0.20) 05/01/22 05:36 Sodium 140 mmol/L (136-145) 05/01/22 05:36 Potassium 4.0 mmol/L (3.5-5.1) 05/01/22 05:36 Chloride 105 mmol/L (98-107) 05/01/22 05:36 Carbon Dioxide 30 mmol/L (21-32) 05/01/22 05:36 Anion Gap 5 (3-11) 05/01/22 05:36 BUN 18 mg/dl (6-23) 05/01/22 05:36 Creatinine 0.82 mg/dl (0.6-1.2) 05/01/22 05:36 Est Cr Clr Drug Dosing 84.7 ml/min 05/01/22 05:36 Est GFR ( Amer) 90.1 ml/min 05/01/22 05:36 Est GFR (Non-Af Amer) 77.8 ml/min 05/01/22 05:36 BUN/Creatinine Ratio 22.0 (10-20) H 05/01/22 05:36 Glucose 104 mg/dl (70-99(Fasting)) H 05/01/22 05:36 POC Glucose 136 mg/dl (70-99) H 04/30/22 16:29 Calcium 9.1 mg/dl (8.5-10.1) 05/01/22 05:36 Nasal Screen MRSA (PCR) Negative (Negative) 05/01/22 08:10 SARS-CoV-2, RNA, NAAT NEGATIVE (NEGATIVE) 04/30/22 Unknown Impressions Shoulder X-Ray 04/30/22 16:33 XR shoulder RT min 2V routine CLINICAL HISTORY: Post shoulder surgery TECHNIQUE: 3 views of the right shoulder were obtained. Comparison: None available at the time of this dictation. FINDINGS: Patient is status post shoulder arthroplasty with expected postsurgical changes including soft tissue swelling and subcutaneous emphysema. No periarticular lucency or hardware fracture is seen. IMPRESSION: Expected postoperative appearance status post placement of shoulder arthroplasty.
--- NOTE | 2022-05-04 17:30 | Discharge Summary ---
Date of Service May 04, 2022 Admission HPI Per Admitting Provider Ms. Morales returns. Again, she is a 61-year-old [id number] female who was referred from Dr. Shah's team for further evaluation of chronic right shoulder pain. She has had pain in the shoulder for several years, but it got quite severe in the last year and she has a lot of difficulty with any motion now. She is only had 1 injection in her shoulder joint around September which gave her only about 5 to 6 weeks improvement in her pain. She was also sent to physical therapy without significant long-term improvement. She does have some weakness and difficulty with lifting her arm to the side. This pain is waking her up at night. At her last appointment we had discussed total shoulder arthroplasty, but she is unsure whether she wanted to move forward with that. She has gotten her hemoglobin A1c value drawn since then. She also made some postoperative arrangements for rehabilitation placement after potential shoulder replacement surgery. [facility]. Of note, she has a seizure disorder and is on multiple antiepileptic medications. Her last seizure was in 2018. She is also diabetic; hemoglobin A1c on 02/24/22 was 6.3. She uses a walker for ambulation. This is mostly just for balance, but she feels like she would be fine if she only used her left hand on the walker. She also had a left ankle fusion in 2018, but is full weightbearing. She lives in an assisted living facility. Principal Diagnosis Right shoulder primary glenohumeral joint arthritis Discharge Data Allergies Allergy/AdvReac Type Severity Reaction Status Date / Time Penicillins Allergy Unknown Rash Verified 04/30/22 10:43 Sulfa (Sulfonamide Allergy Unknown Rash Verified 04/30/22 10:43 Antibiotics) Thiazides Allergy Unknown Rash Verified 04/30/22 10:43 Procedures Performed Operation Date: 04/30/22 12:35 Actual Procedures p Right Anatomic Total Shoulder Replacement(Right) - Sacha Roque M.D. Ordered Studies 04/30/22 05:00 US - OR guided needle placemen Routine Hospital Course (1) Primary osteoarthritis, right shoulder: Patient underwent a right anatomic total shoulder arthroplasty on the date of admission. Patient tolerated the procedure well and was transferred up to the general orthopedic surgery floor in stable condition. Perioperative antibiotic coverage was initiated, and continued for 24 hours postoperatively. DVT prophylaxis was initiated consisting of SCDs and aspirin 325 mg daily. Perioperative pain control regimen was transitioned to strictly oral pain medications by postoperative day 1. On postoperative day 1 the patient was doing very well. Pain was well controlled, and patient was mobilizing well with therapy. Patient was determined be safe and ready for discharge to home. However, patient required transfer to snf facility due to social needs and overall patient mobility. She stayed in the hospital for several days while this was arranged. This was finally arranged on postoperative day 4. She was discharged in good condition on 05/04/22. Total Time Total Time Spent Total Time Spent (In Minutes): 25 Discharge Plan Discharge Items Patient Disposition: Transfer Alf Fac Reason For Visit: Right Shoulder Arthritis Discharge Diagnosis: Right shoulder primary glenohumeral joint arthritis Activity: Per Instructions section Weightbearing: Right non-weightbearing Non-emergency contact: Surgeon Call non-emergency contact if: your pain is not controlled, your temperature is above 101.5, your wound has increased redness and your wound has increased drainage Follow-up/Referrals: Sonu Lundberg [Primary Care Provider] - Sacha Roque M.D. [Physician] - Diet: Regular Addtl Attending Provider Instructions: Things to Watch Out For -Go to the Emergency Room if you have sudden onset of nausea, vomiting, chest pain, shortness of breath, or uncontrollable pain. -Call the clinic or go to the Emergency Room if you have a sudden increase in the amount of wound drainage or the drainage becomes thick, yellow or green, or foul-smelling. -For routine questions, call the clinic at [phone] during regular business hours (8am-5pm). For urgent issues after regular business hours, you may call the clinic to be connected to the on-call physician. Dressings -A special waterproof, silver-impregnated dressing was placed on your shoulder. Keep this dressing in place for 1 week after surgery. You may shower with the waterproof dressing in place, but do not soak the dressing in the bathtub or pool. -One week after surgery, you may remove the waterproof dressing. You may continue to shower, and let water run BRIEFLY over the incision, but do not soak the incision in the bathtub or pool for 2 weeks. You may also gently clean the incision with mild soap and water; pat the incision dry after cleaning-do not rub the incision. Apply a new dressing daily thereafter. Shoulder Exercises -Keep your operative shoulder in the sling for comfort, except as detailed below. -You should come out of the sling 4-5 times a day for passive pendulum exercises: lean over and swing your arm in a circular pattern. -You should also do active-assisted forward flexion exercises: use your opposite hand to lift your operative arm forward to 90 degrees. -Do not flex your elbow (curl motion) or supinate your forearm (rotating palm up) against resistance. -Do not use your arm to push yourself up out of bed or up from a seated position. -Subscapularis repair: Do not externally rotate your arm past neutral rotation (forearm pointed straight out from your body) or internally rotate your arm (pull your forearm towards your body) against resistance. Do not abduct your shoulder past 90 degrees (bring your arm out to the side past shoulder level). Ice Pack -You may use an ice pack for pain relief. You should use it 20-30 minutes at a time. Place a towel between the ice pack and your skin to prevent frostbite. -You should use the ice pack fairly regularly for the first 1-2 weeks after surgery to help reduce pain and inflammation. -About 2 weeks after your surgery, you should start using heat to loosen up your shoulder prior to doing your stretching exercises, then use the cooling sleeve after your exercises are complete to reduce swelling and pain. Pain Medicines -Your prescriptions for pain medications have already been sent to the pharmacy on file at [facility]. -You have been prescribed an anti-inflammatory (Motrin/ibuprofen) and a non- narcotic pain medicine (Tylenol/acetaminophen). These are your primary pain medications. Take them each every 6 hours as instructed. It is recommended that you stagger these medicines every 3 hours (i.e. take ibuprofen at 8:00 am, then acetaminophen at 11:00 am, then ibuprofen at 2:00 pm, etc) -DO NOT take any additional anti-inflammatories (Advil, Aleve/naproxen, Mobic/meloxicam, Celebrex) or any additional Tylenol/acetaminophen products with these prescribed medications. -You have also been prescribed an additional narcotic pain medication (oxycodone). Take this medicine ONLY for breakthrough pain not controlled by the ibuprofen and acetaminophen. -Do not drive or operate heavy machinery while taking the narcotic medication. -Common side effects of narcotic pain medicines include itching, nausea, constipation, and feeling "loopy". However, if you develop a rash or hives, stop taking the medicine and call the clinic. If you develop swelling in your throat or difficulty breathing, go to the Emergency Room or call 911 IMMEDIATELY. -You may take over the counter stool softeners if needed for constipation. Aspirin -Take a full strength (325mg) aspirin every day for 4 weeks (28 days) to prevent blood clots. -If you were taking a baby aspirin (81mg) prior to surgery, you may resume taking this 81mg dose after you complete the 28-day course of the 325mg strength dose; do not take the 325mg dose in addition to your 81mg dose. -Be aware that you will bruise easier while taking Aspirin; this is normal. However, if you develop a significantly large area of swelling after an injury, or have a cut that will not stop bleeding, call the clinic or go to the Emergency Room immediately. Pending Studies at Discharge: No Stand-Alone Forms: My [facility] Skilled Items Patient informed of condition?: Yes DNR: No Discharge Level of Care: Skilled Communicable Disease: No Discharge Prognosis: Stable Lines: None Urinary Catheter: No Medications and DC Order Prescriptions: New acetaminophen [Tylenol Extra Strength] 500 mg Tablet 500 mg PO Q6 21 Days Qty: 84 0RF aspirin [Ecotrin] 325 mg Tablet,Delayed Release (Dr/Ec) 325 mg PO QAM 30 Days Qty: 30 0RF oxycodone 5 mg Tablet 5 - 10 mg PO Q6H PRN (Reason: pain) Qty: 18 0RF Rx Instructions: initial therapy, supervising dr sacha roque, max 6 tabs in 24 hours Continued divalproex 250 mg Tablet,Delayed Release (Dr/Ec) 250 mg PO BID Rx Instructions: take with 500mg polysaccharide iron complex [iFerex 150] 150 mg iron Capsule 150 mg PO QAM divalproex 500 mg Tablet,Delayed Release (Dr/Ec) 500 mg PO BID Rx Instructions: take with 250mg lamotrigine [Lamictal] 25 mg Tablet 25 mg PO HS docusate sodium 100 mg Capsule 100 mg PO BID gabapentin 100 mg Capsule 100 mg PO BID hydroxychloroquine 200 mg Tablet 200 mg PO BID fluticasone propionate 50 mcg/actuation [place],Suspension 1 spray INTRANASAL QAM Rx Instructions: administer into each nostril lamotrigine [Lamictal] 100 mg Tablet 100 mg PO QAM levetiracetam [Keppra] 1,000 mg Tablet 1,000 mg PO TID fiber Tablet,Chewable 1 tab PO BID Artificial Tears (cmc) 1 % Drops 1 drp OPHTHALMIC (EYE) QID multivitamin Tablet 1 tab PO QAM primidone 50 mg Tablet 100 mg PO HS metformin 850 mg Tablet 850 mg PO BID cyanocobalamin (vitamin B-12) 1,000 mcg Tablet 1,000 mcg PO QAM quetiapine [Seroquel] 100 mg Tablet 100 mg PO HS levothyroxine 100 mcg Tablet 100 mcg PO QAM lorazepam 0.5 mg Tablet 0.5 mg PO BID pantoprazole 40 mg Tablet,Delayed Release (Dr/Ec) 40 mg PO QAM rosuvastatin 5 mg Tablet 5 mg PO HS Metamucil (sugar) Powder 1 tbsp PO QAM X-Treme Freeze 4 % Gel 1 applic TOPICAL BID PRN (Reason: Pain) sertraline 200 mg Capsule 200 mg PO QAM Discontinued acetaminophen 500 mg Tablet 500 mg PO BID meloxicam 7.5 mg Tablet 7.5 mg PO QAM Discharge Orders: Discharge Order (Routine); Ordered 05/04/22 Ordered By: Mac English Admission Data Admit Date/Time: 04/30/22 16:33 Attending Provider: Sacha Roque Admit Provider: Sacha Roque Primary Care Provider: Sonu Lundberg Other Interventions: Discharge Summary Assessment (RN) Last Done: 05/04/22 16:43
== END 2022-05-04 18:02 | DRG 483 ==
LOC: ASU 10:18 → 3E 16:33